=== PATIENT | female | born 1940 | race American Indian/Alaskan Native ===

== ENCOUNTER 2018-11-13 12:11 | Inpatient (IN) | payer MEDICARE ==
[2018-11-13] MEDS ORDERED: CLEOCIN 600 MG/50 mL 600 MG/50 ML BAG IV ONE (13:15)
[2018-11-13 13:34] LABS: Basophils % (Auto) 0.8 % (0.0-1.8); Eosinophils % (Auto) 0.7 % (0.0-4.3); Hematocrit 33.3 % (30.3-42.9); Hemoglobin 11.2 gm/dl (10.1-14.3); Lymphocytes # (Auto) 1.3 K/mm3 (1.2-5.4); Mean Corpuscular HGB Conc 34 % (30-34); Mean Corpuscular Volume 89 fl (79-97); Monocytes # (Auto) 0.4 K/mm3 (0.0-0.8); Platelet Count 270 K/mm3 (140-440); Red Blood Count 3.73 M/mm3 (3.65-5.03); Red Cell Distribution Width 14.2 % (13.2-15.2)
[2018-11-13 13:44] LABS: INR 0.95 (0.87-1.13)
[2018-11-13 14:30] LABS: BUN/Creatinine Ratio 23; Blood Urea Nitrogen 21 mg/dL (7-17); Hemolysis Index 2
[2018-11-13] MEDS ORDERED: SODIUM CHLORIDE FLUSH SYRINGE 10 ML IV PRN (14:35)
[2018-11-13] MEDS ORDERED: PROVENTIL IH PRN (14:35)
[2018-11-13] MEDS ORDERED: TYLENOL PO PRN (14:35)
[2018-11-13] MEDS ORDERED: ZOFRAN IV PRN (14:35)
--- NOTE | 2018-11-13 14:35 | History and Physical Report ---
History of Present Illness Chief complaint: her legs look real bad History of present illness: 78 YO Female with HTN, Dementia, HLD present to ED for evaluation. Pt is confused and unable to provide detailed history. Pt history provided by daughter who is at bedside during exam and interview. As per daughter, the patient has experienced worsening redness and swelling to BLE over the past 5 days with increased redness and swelling over the past 1 day. Pt daughter reports the aforementioned symptoms began after walking in her yard. Pt transported to [facility] for further care and evaluation. Pt seen and evaluated in ED and found to have Encephalopathy as well as RLE and LLE Cellulitis. Pt admitted to [facility] and initiated on IV antibiotic therapy. No further history obtainable. Past History Past Medical History: hypertension, hyperlipidemia, other (Dementia) Past Surgical History: cholecystectomy, bowel surgery, Other Social history: . denies: smoking, alcohol abuse, prescription drug abuse Family history: hypertension Medications and Allergies Allergies Allergy/AdvReac Type Severity Reaction Status Date / Time No Known Allergies Allergy Verified 11/13/18 12:38 Home Medications Medication Instructions Recorded Confirmed Last Taken Type amLODIPine [Norvasc] 10 mg PO DAILY 11/13/18 11/13/18 Unknown History Review of Systems ROS unobtainable: due to mental status Exam - Constitutional Vitals: Temp Pulse Resp BP Pulse Ox 97.8 F 76 14 129/70 100 11/13/18 12:38 11/13/18 14:00 11/13/18 14:00 11/13/18 14:00 11/13/18 14:00 General appearance: Present: no acute distress, mild distress - EENT Eyes: Present: PERRL ENT: hearing intact, clear oral mucosa - Neck Neck: Present: supple, normal ROM - Respiratory Respiratory effort: normal Respiratory: bilateral: CTA - Cardiovascular Heart Sounds: Present: S1 & S2. Absent: rub, click - Extremities Extremity abnormal: edema, ulceration, erythema, tenderness, other (Bilateral lower extremities) Peripheral Pulses: within normal limits - Abdominal General gastrointestinal: Present: soft, non-tender, non-distended, normal bowel sounds Female genitourinary: Present: normal - Integumentary Integumentary: Present: clear, warm, dry - Musculoskeletal Musculoskeletal: gait normal, strength equal bilaterally - Psychiatric Psychiatric: no appropriate mood/affect, no intact judgment & insight, no memory intact - Neurologic Neurologic: CNII-XII intact, no focal deficits, moves all extremities, no gait normal Results - Labs CBC & Chem 7: 11/13/18 13:19 11/13/18 13:19 Labs: Abnormal lab results 11/13/18 Range/Units 13:19 BUN 21 H (7-17) mg/dL Assessment and Plan - Patient Problems (1) Encephalopathy Current Visit: Yes Status: Acute Plan to address problem: Neuro checks, aspiration precautions, fall precautions, neuro checks, thyroid panel (2) Bilateral cellulitis of lower leg Current Visit: Yes Status: Acute Plan to address problem: IV antibiotics, BLE duplex, pain control, wound care consult (3) HTN (hypertension) Current Visit: Yes Status: Acute Qualifiers: Hypertension type: essential hypertension Qualified Code(s): I10 - Essential (primary) hypertension Plan to address problem: monitor bp q shift, supportive care, continue medical management. (4) DVT prophylaxis Current Visit: Yes Status: Acute Plan to address problem: SCD to ble while in bed.
--- NOTE | 2018-11-13 14:37 | Emergency Department Report ---
ED Extremity Problem HPI - General Chief complaint: Extremity Injury, Lower Stated complaint: SWOLLEN CALVES Time Seen by Provider: 11/13/18 12:55 Source: patient Mode of arrival: Ambulatory Limitations: No Limitations - History of Present Illness Initial comments: 78-year-old female with a past medical history of hypertension and elevated cholesterol presents to the hospital complaining of bilateral lower extremity for several days. It started with swollen ankles 5 days ago. Today daughter noted redness and source patient's bilateral legs. Patient states this started after working outside in a yard and neighbor was using a leaf blower. She de nies fever, chest pain, or shortness of breath. Severity scale (0 -10): 0 - Related Data Home Medications Medication Instructions Recorded Confirmed Last Taken Aspirin [Baby Aspirin] 81 mg PO QDAY 05/17/14 05/17/14 05/17/14 Atenolol/Chlorthalidone [Tenoretic 1 tab PO DAILY 05/17/14 05/17/14 05/17/14 50-25 mg] Calcium Carbonate/Vitamin D3 1 each PO DAILY 05/17/14 05/17/14 05/17/14 [Caltrate 600 + D Soft Chew Tab] Levomefolate/B6/B12/Algal Oil 1 each PO DAILY 05/17/14 05/17/14 05/17/14 [Metanx Capsule] Potassium Chloride [Klor-Con] 20 meq PO QDAY 05/17/14 05/17/14 05/17/14 Allergies Allergy/AdvReac Type Severity Reaction Status Date / Time No Known Allergies Allergy Verified 11/13/18 12:38 ED Review of Systems ROS: Stated complaint: SWOLLEN CALVES Other details as noted in HPI Comment: All other systems reviewed and negative ED Past Medical Hx - Past Medical History Hx Hypertension: Yes Additional medical history: High Cholesterol - Surgical History Hx Cholecystectomy: Yes Additional Surgical History: Tubular , had surgery. Lymphnode removal on left side. - Social History Smoking Status: Never Smoker Substance Use Type: None - Medications Home Medications: Home Medications Medication Instructions Recorded Confirmed Last Taken Type Aspirin [Baby Aspirin] 81 mg PO QDAY 05/17/14 05/17/14 05/17/14 History Atenolol/Chlorthalidone [Tenoretic 1 tab PO DAILY 05/17/14 05/17/14 05/17/14 History 50-25 mg] Calcium Carbonate/Vitamin D3 1 each PO DAILY 05/17/14 05/17/14 05/17/14 History [Caltrate 600 + D Soft Chew Tab] Levomefolate/B6/B12/Algal Oil 1 each PO DAILY 05/17/14 05/17/14 05/17/14 History [Metanx Capsule] Potassium Chloride [Klor-Con] 20 meq PO QDAY 05/17/14 05/17/14 05/17/14 History ED Physical Exam - General Limitations: No Limitations - Other Other exam information: General: No limitations, patient is alert in no acute distress Head exam: Atraumatic, normocephalic Eyes exam: Normal appearance ENT: Moist mucous membrane, normal oropharynx Neck exam: Normal inspection, full range of motion, no meningismus nontender Respiratory exam: Clear to auscultation bilateral, no wheezes, rales, crackles Cardiovascular: Normal rate and rhythm, positive systolic murmur Abdomen: Soft, nondistended, and nontender, with normal bowel sounds, no rebound, or guarding Extremity: Full range of motion, bilateral lower extremity edema with calf tenderness. Mild warmth. Bilateral leg erythema. Back: Normal Inspection, full range of motion, no tenderness Neurologic: Alert,cranial nerves intact, no motor or sensory deficit Psychiatric: normal affect, normal mood Skin: Warm, dry, intact ED Course Vital Signs 11/13/18 11/13/18 11/13/18 12:38 13:40 13:46 Temperature 97.8 F Pulse Rate 77 Respiratory 18 18 15 Rate Blood Pressure 161/101 O2 Sat by Pulse 99 99 Oximetry 11/13/18 14:00 Temperature Pulse Rate 76 Respiratory 14 Rate Blood Pressure 129/70 O2 Sat by Pulse 100 Oximetry ED Medical Decision Making - Lab Data Result diagrams: 11/13/18 13:19 11/13/18 13:19 Lab Results 11/13/18 11/13/18 11/13/18 Range/Units 13:19 13:19 13:19 WBC 5.8 (4.5-11.0) K/mm3 RBC 3.73 (3.65-5.03) M/mm3 Hgb 11.2 (10.1-14.3) gm/dl Hct 33.3 (30.3-42.9) % MCV 89 (79-97) fl MCH 30 (28-32) pg MCHC 34 (30-34) % RDW 14.2 (13.2-15.2) % Plt Count 270 (140-440) K/mm3 Lymph % (Auto) 22.0 (13.4-35.0) % [place] % (Auto) 7.0 (0.0-7.3) % Eos % (Auto) 0.7 (0.0-4.3) % Baso % (Auto) 0.8 (0.0-1.8) % Lymph # 1.3 (1.2-5.4) K/mm3 [place] # 0.4 (0.0-0.8) K/mm3 Eos # 0.0 (0.0-0.4) K/mm3 Baso # 0.0 (0.0-0.1) K/mm3 Seg Neutrophils % 69.5 (40.0-70.0) % Seg Neutrophils # 4.1 (1.8-7.7) K/mm3 PT 13.1 (12.2-14.9) Sec. INR 0.95 (0.87-1.13) Sodium 141 (137-145) mmol/L Potassium 4.0 (3.6-5.0) mmol/L Chloride 100.3 (98-107) mmol/L Carbon Dioxide 25 (22-30) mmol/L Anion Gap 20 mmol/L BUN 21 H (7-17) mg/dL Creatinine 0.9 (0.7-1.2) mg/dL Estimated GFR > 60 ml/min BUN/Creatinine Ratio 23 % Glucose 96 (65-100) mg/dL Calcium 10.0 (8.4-10.2) mg/dL CK-MB (CK-2) 3.0 (0.0-4.0) ng/mL - Medical Decision Making bebo doppler and arterial doppler pending clindamycin initiated for cellulitis hospitalist informed for admission (Dr Lacey) - Differential Diagnosis DVT, cellulitis, PAD, PVD Critical Care Time: No Critical care attestation.: If time is entered above; I have spent that time in minutes in the direct care of this critically ill patient, excluding procedure time. ED Disposition Clinical Impression: Bilateral cellulitis of lower leg, Bilateral leg edema, Dementia, HTN (hypertension) Disposition: OP ADMIT IP TO THIS HOSP Is pt being admited?: Yes Condition: Stable Time of Disposition: 14:54 (dr lacey)
[2018-11-13] MEDS ORDERED: VANCOMYCIN/NS 1 GM/250 ML 1 GM/250 ML BAG IV ONE (15:55)
[2018-11-13] MEDS ORDERED: VANCOMYCIN PHARMACY TO DOSE IV SCH (16:00)
[2018-11-13] MEDS ORDERED: VANCOMYCIN/NS 1 GM/250 ML 1 GM/250 ML BAG IV SCH (17:00)
[2018-11-13] MEDS ORDERED: ATIVAN ONE (18:33)
[2018-11-13] MEDS: ATIVAN IV PRN (18:37)
[2018-11-13 18:58] LABS: Free T4 (Free Thyroxine) 1.31 ng/dL (0.76-1.46)
[2018-11-14] MEDS: ATIVAN IV PRN ×2 (00:11→06:18)
[2018-11-14] MEDS: SODIUM CHLORIDE FLUSH SYRINGE 10 ML IV SCH ×2 (00:13→09:53)
[2018-11-14] MEDS ORDERED: ALGAL OIL PO SCH (10:00)
[2018-11-14] MEDS ORDERED: ATENOLOL PO SCH (10:00)
[2018-11-14] MEDS ORDERED: THALITONE PO SCH (10:00)
[2018-11-14] MEDS ORDERED: TENORMIN PO SCH (10:00)
[2018-11-14] MEDS ORDERED: NORVASC PO SCH (10:00)
[2018-11-14] MEDS ORDERED: LEVOMEFOLATE PO SCH (10:00)
[2018-11-14] MEDS ORDERED: B12 PO SCH (10:00)
[2018-11-14] MEDS ORDERED: BABY ASPIRIN PO SCH (10:00)
[2018-11-14] MEDS ORDERED: B6 PO SCH (10:00)
[2018-11-14] MEDS ORDERED: NON-FORMULARY (Calcium Carbonate/Vitamin D3 [Caltrate 600 + D Soft Chew Tab] 1 EACH) PO SCH (10:00)
[2018-11-14] MEDS ORDERED: POTASSIUM CHLORIDE PO SCH (10:00)
[2018-11-14] MEDS ORDERED: CHLORTHALIDONE PO SCH (10:00)
--- NOTE | 2018-11-14 11:50 | Progress Note ---
Assessment and Plan Assessment and plan: 78 YO Female with HTN, Dementia, HLD present to ED for evaluation. Pt is confused and unable to provide detailed history. Pt history provided by daughter who is at bedside during exam and interview. As per daughter, the patient has experienced worsening redness and swelling to BLE over the past 5 days with increased redness and swelling over the past 1 day. Pt daughter reports the aforementioned symptoms began after walking in her yard. Pt transported to [facility] for further care and evaluation. Pt seen and evaluated in ED and found to have Encephalopathy as well as RLE and LLE Cellulitis. Pt admitted to [facility] and initiated on IV antibiotic therapy. No further history obtainable. (1) Encephalopathy Current Visit: Yes Status: Acute Plan to address problem: Neuro checks, aspiration precautions, fall precautions, neuro checks, thyroid panel Check CT brain Called family to ascertain baseline, left a message Continue restraint for safety (2) Bilateral cellulitis of lower leg Current Visit: Yes Status: Acute Plan to address problem: IV antibiotics, BLE duplex pending. called to get done, pain control, wound care consult (3) HTN (hypertension) Current Visit: Yes Status: Acute Qualifiers: Hypertension type: essential hypertension Qualified Code(s): I10 - Essential (primary) hypertension Plan to address problem: monitor bp q shift, supportive care, continue medical management. (4) DVT prophylaxis Current Visit: Yes Status: Acute Plan to address problem: SCD to ble while in bed. History Interval history: Patient is seen today for: Encephalopathy of bilateral lower extremity cellulitis Seen and examined at bedside; 24hour events reviewed; nursing staff ; patient remains confused and intermittently trying to get out of bed patient did have a fall last night. Resultant displaced restraints for safety Denies any chest pain, nausea, vomiting, diarrhea No fever noted. No family at bedside at this time Hospitalist Physical - Physical exam Narrative exam: B VITAL SIGNS: Reviewed. GENERAL: The patient appeared chronically ill-appearing cachectic appearing. Vital signs as documented. HEAD: No signs of head trauma. Notable temporal wasting EYES: Pupils are equal. Extraocular motions intact. EARS: Hearing grossly intact. MOUTH: Oropharynx is normal. NECK: No adenopathy, no JVD. CHEST: Chest with clear breath sounds bilaterally. No wheezes, rales, or rhonchi. CARDIAC: Regular rate and rhythm. S1 and S2, without murmurs, gallops, or rubs. VASCULAR: No Edema. Peripheral pulses normal and equal in all extremities. ABDOMEN: Soft, without detectable tenderness. No sign of distention. No rebound or guarding, and no masses palpated. Bowel Sounds normal. MUSCULOSKELETAL: Bilateral lower extremity erythema with associated warmth and scab formation with mild ulceration. Good range of motion of all major joints. Extremities without clubbing, cyanosis or edema. NEUROLOGIC EXAM: Awake and only oriented to person moves all extremities not following commands due to mental status changes. PSYCHIATRIC: Unable to clearly assess SKIN: Multiple erythema or lesions noted - Constitutional Vitals: Temp Pulse Resp BP Pulse Ox 97.8 F 85 18 162/77 100 11/14/18 08:00 11/14/18 09:38 11/14/18 08:00 11/14/18 09:38 11/14/18 08:02 General appearance: Present: no acute distress, mild distress Results - Labs CBC & Chem 7: 11/13/18 13:19 11/13/18 13:19 Labs: Laboratory Last Values WBC 5.8 K/mm3 (4.5-11.0) 11/13/18 13:19 RBC 3.73 M/mm3 (3.65-5.03) 11/13/18 13:19 Hgb 11.2 gm/dl (10.1-14.3) 11/13/18 13:19 Hct 33.3 % (30.3-42.9) 11/13/18 13:19 MCV 89 fl (79-97) 11/13/18 13:19 MCH 30 pg (28-32) 11/13/18 13:19 MCHC 34 % (30-34) 11/13/18 13:19 RDW 14.2 % (13.2-15.2) 11/13/18 13:19 Plt Count 270 K/mm3 (140-440) 11/13/18 13:19 Lymph % (Auto) 22.0 % (13.4-35.0) 11/13/18 13:19 [place] % (Auto) 7.0 % (0.0-7.3) 11/13/18 13:19 Eos % (Auto) 0.7 % (0.0-4.3) 11/13/18 13:19 Baso % (Auto) 0.8 % (0.0-1.8) 11/13/18 13:19 Lymph # 1.3 K/mm3 (1.2-5.4) 11/13/18 13:19 [place] # 0.4 K/mm3 (0.0-0.8) 11/13/18 13:19 Eos # 0.0 K/mm3 (0.0-0.4) 11/13/18 13:19 Baso # 0.0 K/mm3 (0.0-0.1) 11/13/18 13:19 Seg Neutrophils % 69.5 % (40.0-70.0) 11/13/18 13:19 Seg Neutrophils # 4.1 K/mm3 (1.8-7.7) 11/13/18 13:19 PT 13.1 Sec. (12.2-14.9) 11/13/18 13:19 INR 0.95 (0.87-1.13) 11/13/18 13:19 Sodium 141 mmol/L (137-145) 11/13/18 13:19 Potassium 4.0 mmol/L (3.6-5.0) 11/13/18 13:19 Chloride 100.3 mmol/L (98-107) 11/13/18 13:19 Carbon Dioxide 25 mmol/L (22-30) 11/13/18 13:19 Anion Gap 20 mmol/L 11/13/18 13:19 BUN 21 mg/dL (7-17) H 11/13/18 13:19 Creatinine 0.9 mg/dL (0.7-1.2) 11/13/18 13:19 Estimated GFR > 60 ml/min 11/13/18 13:19 BUN/Creatinine Ratio 23 % 11/13/18 13:19 Glucose 96 mg/dL (65-100) 11/13/18 13:19 Calcium 10.0 mg/dL (8.4-10.2) 11/13/18 13:19 Total Creatine Kinase 91 units/L (30-135) 11/13/18 13:19 CK-MB (CK-2) 3.0 ng/mL (0.0-4.0) 11/13/18 13:19 CK-MB (CK-2) Rel Index 3.2 (0-4) 11/13/18 13:19 TSH 0.977 mlU/mL (0.270-4.200) 11/13/18 18:16 Free T4 1.31 ng/dL (0.76-1.46) 11/13/18 18:16
--- NOTE | 2018-11-14 12:31 | Discharge Summary ---
Providers - Providers Date of Admission: 11/13/18 14:35 Attending physician: LEIGH ARIAS MD 11/13/18 15:55 Consult to Wound/ET Nurse [CONS] Routine Reason For Exam: wound eval Primary care physician: LIFTER Hospitalization Reason for admission: cellulitis Condition: Stable Hospital course: 1 YO Female with HTN, Dementia, HLD present to ED for evaluation. Pt is confused and unable to provide detailed history. Pt history provided by daughter who is at bedside during exam and interview. As per daughter, the patient has experie nced worsening redness and swelling to BLE over the past 5 days with increased redness and swelling over the past 1 day. Pt daughter reports the aforementioned symptoms began after walking in her yard. Pt transported to [facility] for further care and evaluation. Pt seen and evaluated in ED and found to have Encephalopathy as well as RLE and LLE Cellulitis. Pt admitted to [facility] unit and initiated on IV antibiotic therapy. No further history obtainable. (1) Encephalopathy Current Visit: Yes Status: Acute Plan to address problem: Neuro checks, aspiration precautions, fall precautions, neuro checks, thyroid panel Daughter demands to take her home. states she is better with the legs and the confusion is her baseline. She will rather have her follow with her own doctors. Does not want further studies. (2) Bilateral cellulitis of lower leg Current Visit: Yes Status: Acute Plan to address problem: Daughter understands this is still pending but does not want it since she feels her legs are better than when she came in, (3) HTN (hypertension) Current Visit: Yes Status: Acute Qualifiers: Hypertension type: essential hypertension Qualified Code(s): I10 - Essential (primary) hypertension Plan to address problem: monitor bp q shift, supportive care, continue medical management. Disposition: [id number]/[place]-[address] [facility] Time spent for discharge: 35 mins Core Measure Documentation - Palliative Care Palliative Care/ Comfort Measures: Not Applicable - Core Measures Any of the following diagnoses?: none Exam - Physical Exam Narrative exam: B VITAL SIGNS: Reviewed. GENERAL: The patient appeared chronically ill-appearing cachectic appearing. Vital signs as documented. HEAD: No signs of head trauma. Notable temporal wasting EYES: Pupils are equal. Extraocular motions intact. EARS: Hearing grossly intact. MOUTH: Oropharynx is normal. NECK: No adenopathy, no JVD. CHEST: Chest with clear breath sounds bilaterally. No wheezes, rales, or rhonchi. CARDIAC: Regular rate and rhythm. S1 and S2, without murmurs, gallops, or rubs. VASCULAR: No Edema. Peripheral pulses normal and equal in all extremities. ABDOMEN: Soft, without detectable tenderness. No sign of distention. No rebound or guarding, and no masses palpated. Bowel Sounds normal. MUSCULOSKELETAL: Bilateral lower extremity erythema with associated warmth and scab formation with mild ulceration. Good range of motion of all major joints. Extremities without clubbing, cyanosis or edema. NEUROLOGIC EXAM: Awake and only oriented to person moves all extremities not fol lowing commands due to mental status changes. PSYCHIATRIC: Unable to clearly assess SKIN: Multiple erythema or lesions noted - Constitutional Vitals: Temp Pulse Resp BP Pulse Ox 97.8 F 85 18 162/77 100 11/14/18 08:00 11/14/18 09:38 11/14/18 08:00 11/14/18 09:38 11/14/18 08:02 Plan Activity: advance as tolerated, fall precautions Diet: low fat Special Instructions: record daily BP diary Follow up with: PRIMARY CARE, [Primary Care Provider] - 7 Days Prescriptions: cephALEXin [Keflex] 500 mg PO Q12HR #12 cap
[2018-11-14] MEDS ORDERED: APRESOLINE IV STA (14:33)
[2018-11-14 14:44] VITALS: BP 177/77
[2018-11-14] MEDS ORDERED: VANCOMYCIN 750 MG in NACL 0.9% 250ML 250 ML IV SCH (18:20)
--- NOTE | 2018-11-21 16:05 | Vascular Lab Report ---
FINAL REPORT EXAM: VL ARTERIAL DUPLEX LE BILAT HISTORY: b/l leg swelling TECHNIQUE: Real-time color duplex sonography was performed of the bilateral lower extremity arterial systems and images are submitted for interpretation PRIORS: None. FINDINGS: Right: There is diffuse atherosclerotic calcification throughout. Velocities: Proximal common femoral artery: Peak systolic 195.5 cm/s, biphasic flow Proximal superficial femoral artery: Peak systolic 155.5 cm/s, biphasic flow Proximal profunda femoral artery: Peak systolic 103.5 cm/s, biphasic flow Mid superficial femoral arteries: Peak systolic 162.9 cm/s, biphasic flow Distal superficial femoral artery: Peak systolic 125.9 cm/s, biphasic flow Distal popliteal artery: Peak systolic 174.6 cm/s, biphasic flow Distal posterior tibialis artery: Peak systolic 123.0 cm/s, biphasic flow Proximal anterior tibialis artery: Peak systolic 108.2 cm/s, biphasic flow Left: There is diffuse atherosclerotic calcification throughout. Velocities: External iliac artery: Peak systolic 189.3 cm/s, biphasic flow Common femoral artery: Peak systolic 179.3 cm/s, biphasic flow Proximal superficial femoral artery: Peak systolic 186.3 cm/s, biphasic flow Proximal profunda femoral artery: Peak systolic 79.5 cm/s, monophasic flow Mid superficial femoral arteries: Peak systolic 151.8 cm/s, biphasic flow Distal superficial femoral artery: Peak systolic 103.7 cm/s, biphasic flow Distal popliteal artery: Peak systolic 124.0 cm/s, biphasic flow Distal posterior tibialis artery: Peak systolic 101.6 cm/s, biphasic flow Proximal anterior tibialis artery: Peak systolic 25.5 cm/s, biphasic flow Dorsalis pedis artery: Peak systolic 93.1 cm/s, biphasic flow IMPRESSION: Is diffuse atherosclerotic disease bilaterally with out hemodynamically significant stenosis
--- NOTE | 2018-11-21 16:05 | Vascular Lab Report ---
FINAL REPORT EXAM: VL VENOUS DUPLEX LE BILAT HISTORY: b/l leg swelling TECHNIQUE: Real-time color duplex sonography was performed of the [facility] and images are submitted for interpretation. PRIORS: None. FINDINGS: Right: There is normal compressibility of the common and superficial femoral veins and the popliteal vein. Normal venous waveforms are demonstrated throughout. No echogenic thrombus is demonstrated. Col or flow is demonstrated in the posterior tibialis, peroneal and greater saphenous veins. Left: There is normal compressibility of the common and superficial femoral veins and the popliteal v ein. Normal venous waveforms are demonstrated throughout. No echogenic thrombus is demonstrated. Carver r flow is demonstrated in the posterior tibialis, peroneal and greater saphenous veins. IMPRESSION: No evidence of DVT.
== END 2018-11-14 18:30 | disposition home or self-care (01) | DRG 71 ==
LOC: ED 12:11 → 2B-ACE 14:35
PROVIDERS: ADMIT Internal Medicine; ATTEND Internal Medicine
DX: G93.40 Encephalopathy, unspecified (principal); L03.115 Cellulitis of right lower limb; L03.116 Cellulitis of left lower limb; F03.90 Unspecified dementia, unspecified severity, without behavioral disturbance, psychotic disturbance, mood disturbance, and anxiety; I10 Essential (primary) hypertension; E78.5 Hyperlipidemia, unspecified; Z82.49 Family history of ischemic heart disease and other diseases of the circulatory system; Z90.49 Acquired absence of other specified parts of digestive tract; Z79.82 Long term (current) use of aspirin
CPT/HCPCS: 36415; 80048; 82550; 82553; 84439; 84443; 85025; 85610; 93925; 93970; 96374; 96375; G0378; J0360; J2060; J3370; J7050

== ENCOUNTER 2018-12-24 10:55 | Outpatient (CLI) | payer MEDICARE ==
--- NOTE | 2018-12-24 15:14 | Magnetic Resonance Report ---
MRI OF THE BRAIN WITHOUT CONTRAST: HISTORY: Dementia PROCEDURE: Multiplanar, multisequence MR imaging of the brain without IV contrast was performed. FINDINGS: No comparison. Mild diffuse cortical volume loss and moderate nonspecific chronic white matter changes are identified. These findings appear appropriate for this persons age. No evidence for acute ischemia, hemorrhage or mass. No chronic infarct or extra-axial fluid collection. The midline structures are central. The basal cisterns are patent. Normal ventricular size. The orbital cavities and sella turcica demonstrate no abnormality. The visualized paranasal sinuses and mastoid air cells are well aerated. IMPRESSION: Volume loss and nonspecific chronic white matter changes. No acute intracranial process.
== END 2018-12-24 10:56 | disposition home or self-care (01) ==
LOC: MRI 10:55
PROVIDERS: ATTEND Psychiatry & Neurology Neurology
DX: R90.82 White matter disease, unspecified (principal); I10 Essential (primary) hypertension; Z90.49 Acquired absence of other specified parts of digestive tract
CPT/HCPCS: 70551

== ENCOUNTER 2019-12-12 13:02 | Emergency (ER) | payer MEDICARE ==
[2019-12-12 13:55] VITALS: BP 118/62
--- NOTE | 2019-12-12 13:56 | Event Note ---
ED Screening Note ED Screening Note: daughter states she has left thigh bruising noticed it in the bathtub states that when she palpates it she has pain daughter believes she had a fall states she noticed it yesterday hx of dementia ambulatory but daughter states that her walk has become slower the daughter states she is also concerned she has a UTI This initial assessment/diagnostic orders/clinical plan/treatment(s) is/are subject to change based on patients health status, clinical progression and re- assessment by fellow clinical providers in the ED. Further treatment and workup at subsequent clinical providers discretion. Patient/guardian urged not to elope from the ED as their condition may be serious if not clinically assessed and managed. Initial orders include: XR of the left hip, UA
--- NOTE | 2019-12-12 15:03 | XRay Report ---
LEFT HIP 2 VIEWS INDICATION / CLINICAL INFORMATION: left hip pain COMPARISON: None available. FINDINGS: BONES / JOINT(S): No acute fracture or subluxation. No significant arthritis. Underlying osteopenia i s noted. SOFT TISSUES: No significant abnormality. ADDITIONAL FINDINGS: None. Signer Name: Arnulfo Ang MD Signed: 12/12/2019 2:58 PM Workstation Name: [id number]
[2019-12-12 19:04] LABS: Bilirubin,Urine NEG (Negative); Blood,Urine NEG (Negative); Color,Urine Yellow (Yellow); Hyaline Casts,Urine 3 /LPF; Mucus,Urine FEW /HPF; Protein,Urine <15 mg/dL mg/dL (Negative); Urobilinogen,Urine < 2.0 mg/dL (<2.0)
== END 2019-12-12 19:00 | disposition left against medical advice (07) ==
LOC: ED 13:02
DX: M79.652 Pain in left thigh (principal); Z53.21 Procedure and treatment not carried out due to patient leaving prior to being seen by health care provider
CPT/HCPCS: 81001